=== PATIENT | male | born 2000 | race Caucasian/White ===

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

== ENCOUNTER 2021-01-07 03:26 | Outpatient (CLI) | payer OTHER, SELFPAY ==
[2021-01-08 01:16] LABS: COVID-19 RT-PCR UVMMC Result Negative (Negative)
== END 2021-01-07 03:27 | disposition home or self-care (01) ==
LOC: LBO 03:26
PROVIDERS: PCP Pediatrics; Visit Provider Pediatrics
DX: Z20.822 Contact with and (suspected) exposure to COVID-19 (principal)
CPT/HCPCS: U0003

== ENCOUNTER 2022-04-18 02:29 | Outpatient (CLI) | payer OTHER, SELFPAY ==
[2022-04-18 17:26] LABS: Anion Gap 13.7 mmol/L (3-11); BUN 19 mg/dL (7-18); CO2 26.3 mmol/L (21.0-32.0); CREATININE 1.1 mg/dL (0.70-1.30); Calcium 9.5 mg/dL (8.5-10.1); Chloride 102 mmol/L (98-107); Glucose 84 mg/dL (74-106); Potassium 4.2 mmol/L (3.5-5.1); Sodium 142 mmol/L (136-145)
[2022-04-21 09:28] LABS: Hepatitis C Ab w Rflx HCV PCR Negative (Negative)
[2022-04-21 10:01] LABS: HIV-1/2 Ag & Ab Screen Negative (Negative)
== END 2022-04-18 02:30 | disposition home or self-care (01) ==
LOC: LBO 02:29
PROVIDERS: PCP Nurse Practitioner Adult Health; Visit Provider Nurse Practitioner Adult Health
DX: F90.2 Attention-deficit hyperactivity disorder, combined type (principal); Z11.4 Encounter for screening for human immunodeficiency virus [HIV]; Z11.59 Encounter for screening for other viral diseases
CPT/HCPCS: 36415; 80048; 86803; 87389

== ENCOUNTER 2023-02-12 05:39 | Emergency (ER) | payer OTHER, SELFPAY ==
[2023-02-12 05:44] VITALS: BP 139/86; PULSE 89; RESP 18; TEMP 37.4; O2SAT 99
--- NOTE | 2023-02-12 06:12 | ED.GENADUL_ITS ---
Discharge Plan Disposition Patient Disposition: Home Condition: Stable Discharge Details Clinical Impression: Foreign body of left eye Primary Care Provider: Louise Winter ED Provider: Jaskaran Dickinson Home Meds and New Rx's Prescriptions: Continued Vyvanse 50 mg capsule 50 mg PO QAM MDD 50 mg Qty: 24 0RF Hold Instructions: Home Medication placed on hold at Doctor's office Vyvanse 50 mg capsule 50 mg PO QAM MDD 50mg/24h Qty: 24 0RF Vyvanse 50 mg capsule 50 mg PO QAM MDD 50mg/24h Qty: 24 0RF Discharge Instructions Instructions: Eye Foreign Body (ED) Additional Instructions: If still having pain in 2 days call [facility] eye care for an appointment [phone] use the erythromycin 3 times a day in the left eye for 5 days if you have severe worsening pain or changes in vision return to the emergency department Medical Decision Making 22 yo male comes in with left eye discomfort since yesterday. 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 He's had discomfort since so came here. Denies vision changes or discharge or drainage. HE has no periorbital swelling, normal conjunctiva bilaterally, eomi with no pain and perrl. He is noted to have a superficial 1mm foreign body at the 7 oclock position on the iris of the left eye. After placing tetracaine on the eye he had near immediate relief of discomfort. I was able to remove the foreign body with a q tip, no other visible foreign body and no rust ring visualized, no foreign body on eye lid inversion as well. Where the foreign body was there is a 1mm corneal abrasion noticed with flourescein, no other abnormalities and no findings to suggest globe rupture. 20/15 vision in both eyes. Will provide prophylactic erythromycin and advised if still having discomfort in 2 days to contact [facility] for an appointment, return precautions given Differential Diagnosis Differential Diagnosis: foreign body, corneal abrasion HPI General Mode of arrival: ambulatory . Date/Time Provider Initiated Documentation: 02/12/23 05:40 . Limitations to Documentation: no limitations . Information obtained by: patient . History of Present Illness 22 year old M presents to the emergency department with the chief complaint of left eye pain, described as moderate, Quality is described as aching, Patient started experiencing this day(s) (1) and it has been constant. No relieving factors improve symptom(s), No exacerbating factors reported . Patient notes no other symptoms.. Patient did receive the following treatments prior to arriv al, none Related Data Home Medications Medication Instructions Recorded Confirmed lisdexamfetamine 50 mg capsule 50 mg PO QAM #24 caps 12/24/22 12/24/22 (Vyvanse) lisdexamfetamine 50 mg capsule 50 mg PO QAM #24 caps 12/24/22 12/24/22 (Vyvanse) lisdexamfetamine 50 mg capsule 50 mg PO QAM #24 caps 12/24/22 02/12/23 (Vyvanse) Previous Rx's Medication Instructions Recorded lisdexamfetamine 50 mg capsule 50 mg PO QAM #24 caps 12/24/22 (Vyvanse) lisdexamfetamine 50 mg capsule 50 mg PO QAM #24 caps 12/24/22 (Vyvanse) lisdexamfetamine 50 mg capsule 50 mg PO QAM #24 caps 12/24/22 (Vyvanse) Allergies Allergy/AdvReac Type Severity Reaction Status Date / Time No Known Allergies Allergy Verified 02/12/23 05:49 General Stated Complaint: EyeProblem AGA: 4 Review of Systems All systems reviewed & are unremarkable except as noted in HPI and below Constitutional Constitutional: Denies chills and Denies fever(s) Eyes Eyes: Denies loss of vision Cardiovascular Cardiovascular: Denies chest pain and Denies dyspnea Respiratory Respiratory: Denies cough and Denies dyspnea Gastrointestinal Gastrointestinal: Denies abdominal pain and Denies vomiting Neurologic Neurologic: Denies loss of vision PFSH All Active Problems (Updated 02/12/23 @ 06:17 by Jaskaran Dickinson MD) Foreign body of left eye (Acute) Long-term current use of stimulant (Acute ~10/2019) Marijuana use (Chronic) 2021: Daily ADHD (attention deficit hyperactivity disorder), combined type (Chronic ~10/2019) psychiatry eval 10/31 - Dr. 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 Surgical History circumcision S/P ACL repair (~2016) LEFT [place] teeth extracted (~2021) Family History Mother Age: 55 No problems noted. Father Age: 53 Hypertension Hyperlipidemia Paternal Grandfather Diabetes Heart disease Paternal Grandfather No problems noted. Paternal Grandmother Heart disease Maternal Grandmother Dementia Maternal Grandfather Dementia Social History Smoking/Tobacco Use Status: Never Smoking risk assessment performed?: Yes Alcohol Intake: current Alcohol Intake frequency: a few times a week Alcohol type: beer Drug use: Occasionally Substance use type: marijuana Counseling given: Yes Adopted: No Caregiver/Support person: No Foster care: No Household members: family Housing: house Number of Children: 0 Communication Needs: None Education Level: high school Details: - 12th grade at [employer] Do you need help understanding health information?: Never 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) Pets and animals: Yes Pets and animals: cat(s) Sexually active: No Do you think of yourself as: straight/heterosexual Current gender identity: male What is your relationship status?: never How often do you talk on the phone with friends or family?: three or more times per week How often do you get together with friends or relatives?: twice per week Do you belong to any clubs or organized social groups?: yes Panel score (0-1 are the most socially isolated patients): 2 What type of physical activity do you participate in: regular exercise Duration: 45-60 minutes/day Frequency: daily Myriam/Scientology: [employer] Special myriam needs: No Seatbelt use: always Helmet use: Yes Helmet use: always Drive intox or ride w/intox special client bus driver: No Do you feel safe at home: Yes Do you feel safe in your relationship?: Yes Exam Const General: no acute distress Orientation: alert HENMT Head: normal to inspection Ears: external ears normal General nose exam: external nose normal Mouth: moist mucous membranes Eyes Alignment and Position: alignment normal Periorbital: periorbital findings normal Eyelids: eyelids normal Conjunctivae: conjunctivae normal Sclera: sclerae normal Pupils: PERRL EOM: EOM intact bilaterally Direct ophthalmoscopy: normal light reflex Neck Neck: normal visual inspection Resp Effort & Inspection: normal respiratory effort and able to speak in complete sentences Cardio Rate: regular rate Skin General skin exam: no rashes or lesions noted Neuro General: patient alert and patient oriented x3 Extrem General: normal to inspection Psych Mental Status: mental status grossly normal Course Vital Signs Vital signs: Vital Signs Temperature 37.4 C 02/12/23 05:44 Pulse 89 02/12/23 05:44 Respiratory Rate 18 02/12/23 05:44 Blood Pressure 139/86 02/12/23 05:44 Pulse Oximetry 99 02/12/23 05:44 Temperature 37.4 C 02/12/23 05:44 Temperature Source Temporal Artery Scan 02/12/23 05:44 Pulse 89 02/12/23 05:44 Respiratory Rate 18 02/12/23 05:44 Respiratory Effort Normal, Non-Labored 02/12/23 05:47 Blood Pressure 139/86 02/12/23 05:44 Blood Pressure Position Sitting 02/12/23 05:44 Pulse Oximetry 99 02/12/23 05:44 Oxygen Delivery Method Room Air 02/12/23 05:44 Oxygen Flow Rate 0 02/12/23 05:44 Pain Level 1 02/12/23 05:44 PAWSS Have you Been Recently Intoxicated or Drunk Within the Last 30 days?: No Have you Ever Experienced Previous Episodes of Alcohol Withdrawal?: No Have you ever Experienced Withdrawal Seizures?: No Have you ever Experienced Delirium Tremens(DT)s?: No Have you ever undergone Alcohol Rehabilitation Treatment (i.e, inpt ot outpatient treatment programs)?: No Have you ever Experienced Blackouts?: No Have you ever Combined Alcohol with other Downers within the last 90 days?: No Have you ever Combined Alcohol with any other Substance of Abuse during the last 90 days?: No Positive Blood Alcohol level on Presentation? [PCS.BAL]: No Evidence of Increased Autonomic Activity (i.e. HR>120, tremor, sweating, agitation, nausea)?: No Result: 0
[2023-02-12] MEDS: Erythromycin Ophth Oint 3.5 GM TUBE OP (06:13)
[2023-02-12] MEDS: Balanced Salt Solution 15 ML BTL OP (06:14)
[2023-02-12] MEDS: Tetracaine 0.5% 4 ML BTL OP (06:16)
[2023-02-12] MEDS: Fluorescein STRIPS 100/BOX 1 MG OP (06:16)
== END 2023-02-12 06:24 | disposition home or self-care (01) ==
PROVIDERS: Emergency Provider Emergency Medicine; PCP Nurse Practitioner Adult Health
DX: T15.02XA Foreign body in cornea, left eye, initial encounter (principal); X58.XXXA Exposure to other specified factors, initial encounter; Y99.0 Civilian activity done for income or pay
CPT/HCPCS: 99283

== ENCOUNTER 2023-10-21 15:13 | Outpatient (CLI) | payer OTHER, SELFPAY ==
[2023-10-21 12:12] LABS: Anion Gap 6.7 mmol/L (3-11); BUN 15 mg/dL (7-18); CO2 28.3 mmol/L (21.0-32.0); CREATININE 1.1 mg/dL (0.70-1.30); Calcium 9.4 mg/dL (8.5-10.1); Chloride 104 mmol/L (98-107); Estimated GFR 97.34 (mL/min/1.73m2); Glucose 99 mg/dL (74-106); Potassium 3.9 mmol/L (3.5-5.1); Sodium 139 mmol/L (136-145)
== END 2023-10-21 15:14 | disposition home or self-care (01) ==
LOC: LBO 15:13
PROVIDERS: PCP Nurse Practitioner Adult Health; Visit Provider Nurse Practitioner Adult Health
DX: F90.2 Attention-deficit hyperactivity disorder, combined type (principal); Z51.81 Encounter for therapeutic drug level monitoring; Z79.899 Other long term (current) drug therapy
CPT/HCPCS: 36415; 80048

== ENCOUNTER 2023-12-04 17:02 | Emergency (ER) | payer OTHER, SELFPAY ==
[2023-12-04 17:13] VITALS: BP 176/81; PULSE 89; RESP 14; TEMP 37; O2SAT 96
[2023-12-04 17:38] VITALS: BP 157/71; PULSE 104; TEMP 36.8; O2SAT 98
--- NOTE | 2023-12-04 17:38 | W.ED.GENAD ---
Discharge Plan Disposition Patient Disposition: Home Condition: Good Discharge Details Clinical Impression: Facial laceration Primary Care Provider: Louise Winter ED Provider: Jacky Monteiro Home Meds and New Rx's Prescriptions: No Action Vyvanse 50 mg capsule 50 mg PO QAM MDD 50 mg Qty: 24 0RF Hold Instructions: Home Medication placed on hold at Doctor's office Discharge Instructions Instructions: Care For Your Absorbable Stitches (ED), Facial Laceration (ED) Additional Instructions: Please keep the area clean and dry. Monitor closely for any redness, drainage or discharge. Absorbable sutures will come out on their own in 10 to 12 days. If they have not you can gently rub warm soapy water on the area to help them come off. If you come back to the emergency department here it will be free of charge for the suture removal. For long-term scar cosmesis, please make sure to avoid any sun to the area for the next year. Apply moisturizer or vitamin E to the area twice daily for the next 12 months for the best chance of wound/scar medication. Please take a daily multivitamin as well as this can help in wound healing. If you notice any worsening of your symptoms, or any new symptoms such as vomiting, diarrhea, fever, chills, shortness of breath, chest pain, numbness, weakness, or fainting , please return immediately to the emergency department for reevaluation. Please follow up with your primary care provider as soon as possible for reassessment and reevaluation. As always, it was a pleasure participating in your medical care today. Referrals: Louise Winter, DYE RANGE FEEDER [Primary Care Provider] - [facility] General Date/Time Provider Initiated Documentation: 12/04/23 17:20. HPI Narrative: This is a pleasant 23-year-old male with no significant past medical history whose tetanus was updated last year who presents today for evaluation of laceration to his nasal bridge. He states that he was walking tripped and the bridge of his nose hit the ceiling overhang. He had some immediate bleeding. No significant pain for the bone itself though. No headache or loss of consciousness. No other complaints at this time. No internal bloody nose. No other complaints at this time. Related Data Home Medications Medication Instructions Recorded Confirmed lisdexamfetamine 50 mg capsule 50 mg PO QAM #24 caps 10/21/23 12/04/23 (Vyvanse) Previous Rx's Medication Instructions Recorded lisdexamfetamine 50 mg capsule 50 mg PO QAM #24 caps 10/21/23 (Vyvanse) Allergies Allergy/AdvReac Type Severity Reaction Status Date / Time No Known Allergies Allergy Verified 12/04/23 17:44 General Stated Complaint: Laceration AGA: 4 Review of Systems All systems reviewed & are unremarkable except as noted in HPI and below Exam Narrative Exam Narrative: 1.Const: Well-nourished, Well-developed, appearing stated age 2.Eyes: PERRL, no conjunctival injection, and symmetrical lids. 3.ENT: There is no evidence of raccoon eyes, soto sign, CSF rhinorrhea, mastoid tenderness, cranial crepitus, hemotympanum, exophthalmos, or hyphema. Patient demonstrates intact dentition with no signs of tooth avulsion or fracture, no signs of jaw deformity, no evidence of a LeFort's fracture, with an intact palate, nose and orbital region. There is no evidence of a nasal septal hematoma. No proptosis. Jaw closes symmetrically. Airway is clear. Patient does have a 1 cm horizontal laceration over the brow of his nose. No actual bony tenderness. Laceration is superficial. No active bleeding. 4.CVS: +S1/S2, No murmurs or gallops. Peripheral pulses 2+ and equal in all extremities. Brisk capillary refill in all extremities. 5.RESP: Unlabored respiratory effort. Clear to auscultation bilaterally. No wheezes rales or rhonchi 6.GI: Soft, Nontender/Nondistended, No hepatosplenomegaly. No guarding or rebound. 7.MSK: Normocephalic/Atraumatic, Extremities w/o deformity or ttp No cyanosis or clubbing, Normal movement of all extremities 8.Skin: Warm, Dry. No rashes or lesions. 9.Neuro: soa architect II-XII grossly intact. Sensation grossly intact, no focal neurologic deficits. All 6 cardinal planes of vision are fully intact. No evidence of rotatory or vertical nystagmus. The patient demonstrated a normal [id number]-[id number], good dexterity. There was no evidence of dysdiadochokinesia. Patient was able to ambulate without difficulty. There was no wide-based gait. Romberg testing was normal. Lowg-xe-qbhi testing was normal. Sensation was intact bilaterally as well as muscle strength bilaterally for all extremities. Patient was able to verbalize butter cup with no slurring, or miss pronunciation. 10.Psych: (AAO) x3. Appropriate mood and affect Course Vital Signs Vital signs: Vital Signs Temperature 37.0 C 12/04/23 17:13 Pulse 89 12/04/23 17:13 Respiratory Rate 14 12/04/23 17:13 Blood Pressure 176/81 H 12/04/23 17:13 Pulse Oximetry 96 12/04/23 17:13 Temperature 37.0 C 12/04/23 17:13 Pulse 89 12/04/23 17:13 Respiratory Rate 14 12/04/23 17:13 Respiratory Effort Normal 12/04/23 17:25 Blood Pressure 176/81 H 12/04/23 17:13 Blood Pressure Position Sitting 12/04/23 17:13 Pulse Oximetry 96 12/04/23 17:13 Oxygen Delivery Method Room Air 12/04/23 17:13 Oxygen Flow Rate 0 12/04/23 17:13 Pain Level 0 12/04/23 17:13 Procedures Laceration Laceration 1: Site: face Size (cm): 1 Description: linear Depth: simple, single layer Local Anesthetic: Lidocaine 1% and with Epi Amount of anesthesia used (mL): 2 Pre-repair: wound explored, irrigated extensively and deep structures intact Skin layer closed with: other (Chromic Gut) Size (cm): 5-0 Number of sutures: 3 Technique: simple, interrupted Medical Decision Making This is a pleasant 23-year-old male with no significant past medical history whose tetanus was updated last year who presents today for evaluation of laceration to his nasal bridge. He states that he was walking tripped and the bridge of his nose hit the ceiling overhang. He had some immediate bleeding. No significant pain for the bone itself though. No headache or loss of consciousness. No other complaints at this time. No internal bloody nose. No other complaints at this time. Physical exam demonstrates well-appearing male. 1 cm laceration present over the nasal bridge. No bony tenderness. No nasal septal hematoma. No evidence of bleeding internally. Neurologic exam normal. No other evidence of trauma. The area was anesthetized with lidocaine. 3 simple interrupted 5-0 Chromic Gut sutures were applied. Patient tolerated this well. Small amount of Dermabond was placed over this. Tetanus is up-to-date. No evidence of fracture otherwise to require imaging. No other concerning abnormalities on assessment. Discussed red flags which to return. I have extensively reviewed the treatment plan and discharge instructions with the patient. I have addressed all patient concerns at this time. The patient was made aware of what symptoms to monitor for that would warrant a return to the emergency department. Discussed the plan with the patient, they demonstrate verbal understanding and agreement with our assessment and plan at this time. The documentation in this chart was dictated using [email or web address] dictation software. Please excuse any dictation errors. Quality:SDOH Health Related Social Needs: No Data to Display PFSH All Active Problems Facial laceration (Acute) Long-term current use of stimulant (Acute ~10/2019) Marijuana use (Chronic) 2021: Daily ADHD (attention deficit hyperactivity disorder), combined type (Chronic ~10/2019) psychiatry eval 10/31 - Dr. 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 Generalized anxiety disorder Depression in pediatric patient ACL (anterior cruciate ligament) rupture (~07/2017) 07/2017 Surgical History S/P ACL repair (~2016) LEFT [place] teeth extracted (~2021) circumcision Family History Mother Age: 56 No problems noted. Father Age: 54 Hypertension Hyperlipidemia Paternal Grandfather Diabetes Heart disease Paternal Grandfather No problems noted. Paternal Grandmother Heart disease Maternal Grandmother Dementia Maternal Grandfather Dementia Social History Smoking/Tobacco Use Status: Never Smoking risk assessment performed?: Yes Alcohol Intake: current Alcohol Intake frequency: a few times a week Alcohol type: beer Drug use: Occasionally Substance use type: marijuana Counseling given: Yes Adopted: No Caregiver/Support person: No Foster care: No Household members: family Housing: house Number of Children: 0 Communication Needs: None Education Level: high school Details: - 12th grade at [employer] Do you need help understanding health information?: Never 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) Pets and animals: Yes (2) Pets and animals: cat(s) Sexually active: Yes Do you think of yourself as: straight/heterosexual Current gender identity: male What is your relationship status?: never How often do you talk on the phone with friends or family?: three or more times per week How often do you get together with friends or relatives?: three or more times per week Do you belong to any clubs or organized social groups?: yes Panel score (0-1 are the most socially isolated patients): 2 What type of physical activity do you participate in: regular exercise and other Details: Softball Duration: > 90 minutes/day Frequency: 1-2 times per week Myriam/Yazdanism: Anabaptism Special mryiam needs: No Seatbelt use: always Helmet use: Yes Helmet use: always Drive intox or ride w/intox tour bus driver/guide: No Do you feel safe at home: Yes Do you feel safe in your relationship?: Yes PAWSS Have you Been Recently Intoxicated or Drunk Within the Last 30 days?: Yes Have you Ever Experienced Previous Episodes of Alcohol Withdrawal?: No Have you ever Experienced Withdrawal Seizures?: No Have you ever Experienced Delirium Tremens(DT)s?: No Have you ever undergone Alcohol Rehabilitation Treatment (i.e, inpt ot outpatient treatment programs)?: No Have you ever Experienced Blackouts?: No Have you ever Combined Alcohol with other Downers within the last 90 days?: No Have you ever Combined Alcohol with any other Substance of Abuse during the last 90 days?: No Positive Blood Alcohol level on Presentation? [PCS.BAL]: No Evidence of Increased Autonomic Activity (i.e. HR>120, tremor, sweating, agitation, nausea)?: No Result: 1
== END 2023-12-04 17:47 | disposition home or self-care (01) ==
PROVIDERS: Emergency Provider Student in an Organized Health Care Education/Training Program; PCP Nurse Practitioner Adult Health
DX: S01.21XA Laceration without foreign body of nose, initial encounter (principal); W01.198A Fall on same level from slipping, tripping and stumbling with subsequent striking against other object, initial encounter; Y93.01 Activity, walking, marching and hiking
CPT/HCPCS: 12011; 99283

== ENCOUNTER 2024-07-05 04:43 | Emergency (ER) | payer OTHER, SELFPAY ==
[2024-07-05 04:47] VITALS: BP 149/91; PULSE 70; RESP 16; TEMP 36.8
--- NOTE | 2024-07-05 05:09 | ED.GENADUL_ITS ---
Discharge Plan Disposition Patient Disposition: Home Condition: Good Discharge Details Clinical Impression: Back pain Primary Care Provider: Louise Winter ED Provider: Sylvie Gardner Home Meds and New Rx's Prescriptions: New cyclobenzaprine 5 mg tablet 5 mg PO TID PRNQty: 10 0RF Continued Vyvanse 50 mg capsule 50 mg PO QAM MDD 50 mg Qty: 24 0RF Discontinued Vyvanse 50 mg capsule 50 mg PO QAM MDD 50mg/24h Qty: 24 0RF Vyvanse 50 mg capsule 50 mg PO QAM MDD 50mg/24h Qty: 24 0RF Discharge Instructions Instructions: Low Back Pain ED Additional Instructions: Tyelnol and ibuprofen over the counter for pain; follow the directions on the bottle. Cyclobenzaprine 5mg up to every 8 hours as needed for muscle spasm. Call your primary care doctor today to schedule an appointment for within the next 3 days to follow up on your visit here. Return to the emergency department for new or worsening symptoms including new/different/worse pain, inability to walk, numbness, weakness, or if you have any other concerns. 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 Date/Time Provider Initiated Documentation: 07/05/24 04:45 . Limitations to Documentation: no limitations . Information obtained by: patient . HPI Narrative: 23yo previously healthy male presenting for low back pain. Yesterday at work was bent over much of the day. That evening noted left sided low back pain. Took tylenol and ibuprofen with some improvement but pain kept him awake much of the night. No falls or injuries. No numbness, tingling, weakness, or bowel or bladder issues. No hx of IVDU or spinal surgeries. Systemically well and otherwise in his usual state of health with no fevers, chills, rash, nausea, vomiting, abdominal pain, or other concerns. Related Data Home Medications ?Medication ?Instructions ?Recorded ?Confirmed lisdexamfetamine 50 mg capsule 50 mg PO QAM #24 caps 03/29/24 07/05/24 (Vyvanse) cyclobenzaprine 5 mg tablet 5 mg PO TID PRN #10 tabs 07/05/24 Previous Rx's ?Medication ?Instructions ?Recorded lisdexamfetamine 50 mg capsule 50 mg PO QAM #24 caps 03/29/24 (Vyvanse) cyclobenzaprine 5 mg tablet 5 mg PO TID PRN #10 tabs 07/05/24 Allergies Allergy/AdvReac Type Severity Reaction Status Date / Time No Known Allergies Allergy Verified 07/05/24 04:53 General Stated Complaint: Nk/Back Pain AGA: 4 Review of Systems Narrative: see HPI Exam Narrative Exam Narrative: General: Alert, well appearing, well nourished, in no acute distress. Head: Normocephalic, atraumatic Neck: Trachea midline, ?Neck supple. Cardiac: ?No cyanosis. Resp: No respiratory distress. Speaking in full sentences. Abd: Non-distended : ?No suprapubic tenderness. No CVA tenderness. Extremities: ?No deformities.? No peripheral edema. Back: No midline tenderness. Left lumbar paraspinal tenderness and spasm. Neuro: ? GCS 15.? Fluent speech, no dysarthria. Motor- 5/5 strength symmetric bilateral lower extremities including Sensation- ?Intact to light touch and symmetric multiple dermatomes bilateral lower extremities Reflexes- 2/4 achilles & patellar, no clonus Gait/station: ?Normal stance.? No truncal ataxia. Steady gait with equal normal steps Course Vital Signs Vital signs: Vital Signs Temperature 36.8 C 07/05/24 04:47 Pulse 70 07/05/24 04:47 Respiratory Rate 16 07/05/24 04:47 Blood Pressure 149/91 H 07/05/24 04:47 Temperature 36.8 C 07/05/24 04:47 Temperature Source Temporal Artery Scan 07/05/24 04:47 Pulse 70 07/05/24 04:47 Respiratory Rate 16 07/05/24 04:47 Respiratory Effort Normal 07/05/24 04:53 Blood Pressure 149/91 H 07/05/24 04:47 Oxygen Delivery Method Room Air 07/05/24 04:47 Oxygen Flow Rate 0 07/05/24 04:47 Pain Level 8 07/05/24 04:47 Medical Decision Making 23yo previously healthy male presenting for low back pain. Yesterday at work was bent over much of the day; that evening noted left sided low back pain. Hypertensive on arrival, vital signs otherwise reassuring. Normal neurologic exam and no neurologic symptoms. Does have left paraspinal tenderness on exam. No concerning for cauda equina, spinal epidural abscess, spinal epidural hematoma; no indication for labs or imaging. Will treat symptoms with tylenol, toradol, flexeril, lidcoaine patch; prescribed short course of flexeril. Advised PCP followup and patient instructed to followup [facility] PCP regarding his elevated blood pressure here today. Discharged home; discharge instructions and return precautions were reviewed with patient who verbalized understanding. All questions were answered and he is in full agreement with the plan. Quality:SDOH Health Related Social Needs: No Data to Display [facility] All Active Problems (Updated 07/05/24 @ 05:11 by Sylvie Gardner MD) Back pain (Acute) Long-term current use of stimulant (Acute ~10/2019) Marijuana use (Chronic) 2021: Daily ADHD (attention deficit hyperactivity disorder), combined type (Chronic ~10/2019) psychiatry eval 10/31 - Dr. 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 Generalized anxiety disorder Depression in pediatric patient ACL (anterior cruciate ligament) rupture (~07/2017) 07/2017 Surgical History S/P ACL repair (~2016) LEFT [place] teeth extracted (~2021) circumcision Family History Mother Age: 56 No problems noted. Father Age: 54 Hypertension Hyperlipidemia Paternal Grandfather Diabetes Heart disease Paternal Grandfather No problems noted. Paternal Grandmother Heart disease Maternal Grandmother Dementia Maternal Grandfather Dementia Social History Smoking/Tobacco Use Status: Never Smoking risk assessment performed?: Yes Alcohol Intake: current Alcohol Intake frequency: a few times a week Alcohol type: beer Drug use: Occasionally Substance use type: marijuana Counseling given: Yes Adopted: No Caregiver/Support person: No Foster care: No Household members: family Housing: house Number of Children: 0 Communication Needs: None Education Level: high school Details: - 12th grade at [employer] Do you need help understanding health information?: Never 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) Pets and animals: Yes (2) Pets and animals: cat(s) Sexually active: Yes Do you think of yourself as: straight/heterosexual Current gender identity: male What is your relationship status?: never How often do you talk on the phone with friends or family?: three or more times per week How often do you get together with friends or relatives?: three or more times per week Do you belong to any clubs or organized social groups?: yes Panel score (0-1 are the most socially isolated patients): 2 What type of physical activity do you participate in: regular exercise and other Details: Softball Duration: > 90 minutes/day Frequency: 1-2 times per week Myriam/Faith: [employer]beterian Special myriam needs: No Seatbelt use: always Helmet use: Yes Helmet use: always Drive intox or ride w/intox tractor trailer driver: No Do you feel safe at home: Yes Do you feel safe in your relationship?: Yes
[2024-07-05] MEDS: Acetaminophen 500 MG TAB 1000 MG PO (05:19)
[2024-07-05] MEDS: Cyclobenzaprine 10 MG TAB PO (05:19)
[2024-07-05] MEDS: Ketorolac 15 MG/ML VIAL IM (05:19)
[2024-07-05] MEDS: Lidocaine 5% Patch 1 PATCH TP (05:20)
== END 2024-07-05 05:20 | disposition home or self-care (01) ==
LOC: ER 05:17
PROVIDERS: Emergency Provider Student in an Organized Health Care Education/Training Program; PCP Nurse Practitioner Adult Health
DX: M54.50 Low back pain, unspecified (principal)
CPT/HCPCS: 96372; 99284; 99283; J1885

== ENCOUNTER 2024-07-06 04:18 | Emergency (ER) | payer OTHER, SELFPAY ==
[2024-07-06 04:22] VITALS: BP 181/102; PULSE 73; RESP 16; TEMP 36.4; O2SAT 100
--- NOTE | 2024-07-06 04:48 | W.ED.GENAD ---
Discharge Plan Disposition Patient Disposition: Home Condition: Good Discharge Details Clinical Impression: Back pain Primary Care Provider: Louise Winter ED Provider: Sylvie Gardner Home Meds and New Rx's Prescriptions: New lidocaine 5 % adhesive patch,medicated 1 patch topical DAILY Qty: 15 0RF Rx Instructions: leave on most painful area for up to 12 hrs Continued Vyvanse 50 mg capsule 50 mg PO QAM MDD 50 mg Qty: 24 0RF cyclobenzaprine 5 mg tablet 5 mg PO TID PRNQty: 10 0RF Discharge Instructions Instructions: Back Exercises, Low Back Pain ED Additional Instructions: Tylenol and ibuprofen over the counter; follow the directions on the bottle. You can also use the lidocaine patches if they are helpful. If you are not using a lidocaine patch, try using a hot pack. Do gentle stretches, especially when you first wake up or after a period of inactivity. Call your primary care doctor today to schedule an appointment for within the next 48 hours to followup on your visit here. Discuss your blood pressure at this visit which was high here today. Return to the emergency department for new or worsening symptoms. Referrals: Louise Winter, JAVA SQL DEVELOPER [Primary Care Provider] - HPI General Mode of arrival: ambulatory. Date/Time Provider Initiated Documentation: 07/06/24 04:37. Limitations to Documentation: no limitations. Information obtained by: patient and old records reviewed. HPI Narrative: 23yo previously health male presetning for low back pain; seen in this ED yesterday for same (see yesterday's visit note for details). Started after a day at work during which he spent most of the day bent over, that evening had left sided back pain for which he came to the ED and was discharged with PO flexeril. Pain continues. Tolerable during the day yesterday, however this morning around 0300 woke with more severe pain. Took tylenol, ibuprofen, and flexeril and pain continues. No difficutly walking. No dysuria or hematuria. No numbness, tingling, or weakness. No bowel/bladder issues. No hx IVDU or spinal surgery. Systemically well, no fevers, otherwise in his usual state of health. Related Data Home Medications ?Medication ?Instructions ?Recorded ?Confirmed lisdexamfetamine 50 mg capsule 50 mg PO QAM #24 caps 03/29/24 07/06/24 (Vyvanse) cyclobenzaprine 5 mg tablet 5 mg PO TID PRN #10 tabs 07/05/24 07/06/24 lidocaine 5 % topical patch 1 patch topical DAILY #15 ea 07/06/24 Previous Rx's ?Medication ?Instructions ?Recorded lisdexamfetamine 50 mg capsule 50 mg PO QAM #24 caps 03/29/24 (Vyvanse) cyclobenzaprine 5 mg tablet 5 mg PO TID PRN #10 tabs 07/05/24 lidocaine 5 % topical patch 1 patch topical DAILY #15 ea 07/06/24 Allergies Allergy/AdvReac Type Severity Reaction Status Date / Time No Known Allergies Allergy Verified 07/06/24 04:23 General Stated Complaint: Nk/Back Pain AGA: 5 Review of Systems Narrative: see HPI Exam Narrative Exam Narrative: General: Alert, well appearing, well nourished, in no acute distress. Head: Normocephalic, atraumatic Neck: Trachea midline, ?Neck supple. Cardiac: ?RRR, no murmurs appreciated Resp: No respiratory distress. Speaking in full sentences. Abd: ?Non-distended : ?No suprapubic tenderness. No CVA tenderness. Extremities: ?No deformities.? No peripheral edema. 2+ symmetric radial pulses bilaterally. Back: Left mid/low thoracic paraspinal tenderness without spasm. No midline tenderness. Neuro: ? GCS 15. Fluent speech, no dysarthria. Motor- 5/5 strength symmetric bilateral lower extremities Sensation- ?Intact to light touch and symmetric multiple dermatomes bilateral lower extremities Reflexes- 2/4 achilles & patellar, no clonus Gait/station: ?Normal stance.? No truncal ataxia. Steady gait with equal normal steps Course Vital Signs Vital signs: Vital Signs Temperature 36.4 C 07/06/24 04:22 Pulse 73 07/06/24 04:22 Respiratory Rate 16 07/06/24 04:22 Blood Pressure 181/102 H 07/06/24 04:22 Pulse Oximetry 100 07/06/24 04:22 Temperature 36.4 C 07/06/24 04:22 Temperature Source Temporal Artery Scan 07/06/24 04:22 Pulse 73 07/06/24 04:22 Respiratory Rate 16 07/06/24 04:22 Respiratory Effort Normal 09/25/24 04:25 Blood Pressure 181/102 H 07/06/24 04:22 Blood Pressure Position Sitting 07/06/24 04:22 Pulse Oximetry 100 07/06/24 04:22 Oxygen Delivery Method Room Air 07/06/24 04:22 Oxygen Flow Rate 0 07/06/24 04:22 Pain Level 9 07/06/24 04:22 Medical Decision Making 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 Started after a day at work during which he spent most of the day bent over, that evening had left sided back pain for which he came to the ED and was discharged with PO flexeril. Pain continues, tolerable during the day yesterday however this morning around 0300 woke with more severe pain. Pain is dull, nonradiating, and worse with movement. No neurologic symptoms. No red flags for back pain. Hypertensive on arrival, vital signs otherwise reassuring. Normal neurologic exam. Exam consistent with msk strain. Not concerning for spinal cord compression/cauda equina/spinal epidural hematoma. Unlikely aortic dissection. Less likely nephrolithiasis/pyelenephritits given history; will get UA to evaluate. No indication for other labs or imaging at this time. Will treat this morning with IM toradol, PO valium, lidocaine patch. On reassessment pt reports pain has improved. Has appointment with his PCP for this morning with plan for physical therapy referral. Repeat BP improved though remains hypertensive; advised to discuss with his PCP today. Discharged home; discharge instructions and return precautions were reviewed with patient who verbalized understanding. All questions were answered and he is in full agreement with the plan. Quality:SDOH Health Related Social Needs: No Data to Display PFSH All Active Problems (Updated 07/06/24 @ 05:12 by Sylvie Gardner MD) Back pain (Acute) Long-term current use of stimulant (Acute ~10/2019) Marijuana use (Chronic) 2021: Daily ADHD (attention deficit hyperactivity disorder), combined type (Chronic ~10/2019) psychiatry eval 10/31 - Dr. 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 Generalized anxiety disorder Depression in pediatric patient ACL (anterior cruciate ligament) rupture (~07/2017) 07/2017 Surgical History S/P ACL repair (~2016) LEFT [place] teeth extracted (~2021) circumcision Family History Mother Age: 56 No problems noted. Father Age: 54 Hypertension Hyperlipidemia Paternal Grandfather Diabetes Heart disease Paternal Grandfather No problems noted. Paternal Grandmother Heart disease Maternal Grandmother Dementia Maternal Grandfather Dementia Social History Smoking/Tobacco Use Status: Never Smoking risk assessment performed?: Yes Alcohol Intake: current Alcohol Intake frequency: a few times a week Alcohol type: beer Drug use: Occasionally Substance use type: marijuana Counseling given: Yes Adopted: No Caregiver/Support person: No Foster care: No Household members: family Housing: house Number of Children: 0 Communication Needs: None Education Level: high school Details: - 12th grade at [employer] Do you need help understanding health information?: Never 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) Pets and animals: Yes (2) Pets and animals: cat(s) Sexually active: Yes Do you think of yourself as: straight/heterosexual Current gender identity: male What is your relationship status?: never How often do you talk on the phone with friends or family?: three or more times per week How often do you get together with friends or relatives?: three or more times per week Do you belong to any clubs or organized social groups?: yes Panel score (0-1 are the most socially isolated patients): 2 What type of physical activity do you participate in: regular exercise and other Details: Softball Duration: > 90 minutes/day Frequency: 1-2 times per week Myriam/Methodist: Anabaptist Special myriam needs: No Seatbelt use: always Helmet use: Yes Helmet use: always Drive intox or ride w/intox special needs bus driver: No Do you feel safe at home: Yes Do you feel safe in your relationship?: Yes
[2024-07-06] MEDS: Lidocaine 5% Patch 1 PATCH TP (04:52)
[2024-07-06] MEDS: diazePAM 2 MG TAB PO (04:52)
[2024-07-06] MEDS: Ketorolac 15 MG/ML VIAL IM (04:52)
[2024-07-06 05:04] LABS: Bilirubin Negative (Negative); Blood Negative (Negative); Clarity Clear (Clear); Glucose Negative (Negative); Ketones Negative (Negative); Leukocyte Esterase Negative (Negative); Nitrite Negative (Negative); Specific Gravity 1.025 (1.005-1.025); Urobilinogen 0.2 mg/dL (Up to 0.2)
[2024-07-06 05:58] VITALS: BP 150/75; PULSE 59; RESP 14; O2SAT 98
== END 2024-07-06 06:08 | disposition home or self-care (01) ==
PROVIDERS: Emergency Provider Student in an Organized Health Care Education/Training Program; PCP Nurse Practitioner Adult Health
DX: M54.50 Low back pain, unspecified (principal)
CPT/HCPCS: 96372; 99284; 81003; J1885

== ENCOUNTER 2024-10-19 13:14 | Outpatient (CLI) | payer OTHER, SELFPAY ==
[2024-10-19 13:55] LABS: Anion Gap 10.4 mmol/L (3-11); BUN 10 mg/dL (7-18); CO2 27.6 mmol/L (21.0-32.0); Calcium 9.2 mg/dL (8.5-10.1); Chloride 104 mmol/L (98-107); Estimated GFR 108.46 (mL/min/1.73m2); Glucose 90 mg/dL (74-106); Potassium 3.8 mmol/L (3.5-5.1); Sodium 142 mmol/L (136-145)
== END 2024-10-19 13:15 | disposition home or self-care (01) ==
LOC: LBO 13:20
PROVIDERS: PCP Nurse Practitioner Adult Health; Visit Provider Nurse Practitioner Adult Health
DX: F90.2 Attention-deficit hyperactivity disorder, combined type (principal); Z79.899 Other long term (current) drug therapy
CPT/HCPCS: 36415; 80048